=== PATIENT | male | born 1965 | race Caucasian/White ===

== ENCOUNTER 2020-10-16 01:53 | Emergency (ER) | payer BC ==
--- NOTE | 2020-10-16 02:05 | EDM.PDOC ---
ED HPI GENERAL MEDICAL PROBLEM - General Chief Complaint: Neurological Problem Stated Complaint: MEDICAL VIA [facility] Time Seen by Provider: 10/16/20 01:56 Source of Information: Reports: Patient, EMS History Limitations: Reports: No Limitations - History of Present Illness INITIAL COMMENTS - FREE TEXT/NARRATIVE: Oscar is a 55-year-old male presenting to the ED via [facility] for evaluation of syncopal episode with possible associated seizure. The patient was in his usual state of health and went tubing for most of the day today. He has had 8 beers and a couple cocktails throughout the day. Tonight he was sleeping when he got up and felt like he needed to urinate. He started did not feel well and ended up having a syncopal episode striking his face on the floor. He sustained a significant rug burn around the left periorbital space, nasal bridge, and zygomatic arch. Witnesses stated that he had left-sided tonic- clonic seizures lasting about 2 minutes. Patient does not have any evidence of biting his tongue, however, he thinks that he may have had incontinence of stool. The patient denies any history of seizures prior, however, he did fall several days ago and struck his head at that time as well. He denies any headache, vision changes, any new onset of numbness or tingling, or weakness. He denies any nausea or vomiting. He has had no urinary urgency, frequency, or burning with urination. He denies any fever or chills. Left Knee Pain Score (Numeric/FACES): 6 - Related Data Allergies Allergy/AdvReac Type Severity Reaction Status Date / Time No Known Allergies Allergy Verified 10/16/20 01:57 Home Meds: Home Meds Aspirin [Adult Low Dose Aspirin EC] 81 mg PO DAILY 10/16/20 [History] L.acidoph,Paracasei, B.lactis [Probiotic] 1 cap PO DAILY 10/16/20 [History] Losartan [Cozaar] 50 mg PO DAILY 10/16/20 [History] Multivitamin [Multi-Day Vitamins] 1 tab PO DAILY 10/16/20 [History] [place]-3/DHA/Epa/Fish Oil [Fish Oil 1,400 MG Softgel] 1 cap PO DAILY 10/16/20 [History] amLODIPine [Norvasc] 5 mg PO DAILY 10/16/20 [History] buPROPion HCL [Bupropion HCl Sr] 150 mg PO BID 10/16/20 [History] ED ROS GENERAL - Review of Systems Review Of Systems: See Below Constitutional: Reports: No Symptoms HEENT: Reports: No Symptoms Respiratory: Reports: No Symptoms Cardiovascular: Reports: Lightheadedness, Syncope Endocrine: Reports: No Symptoms GI/Abdominal: Reports: Stool Incontinence : Reports: No Symptoms Musculoskeletal: Reports: No Symptoms Skin: Reports: No Symptoms Neurological: Reports: Seizure (Possible tonic-clonic seizures for 2 minutes.), Syncope Psychiatric: Reports: No Symptoms Hematologic/Lymphatic: Reports: No Symptoms Immunologic: Reports: No Symptoms ED EXAM, GENERAL - Physical Exam Exam: See Below Exam Limited By: No Limitations General Appearance: Alert, No Apparent Distress Eye Exam: Bilateral Eye: EOMI, PERRL, Other (Irises are 2 different colors.) Nose: Normal Mucosa, No Blood, Other (Superficial abrasion on the nasal bridge) Throat/Mouth: Normal Inspection, Normal Lips, Normal Oropharynx, Normal Voice, No Airway Compromise, Other (No evidence of trauma to the cheeks or tongue) Head: Other (Abrasion above the left eyebrow and on the left zygomatic arch as well as the nasal bridge.) Neck: Normal Inspection, Supple, Non-Tender Respiratory/Chest: No Respiratory Distress, Lungs Clear, Normal Breath Sounds Cardiovascular: Normal Peripheral Pulses, Regular Rate, Rhythm, No Murmur Peripheral Pulses: 2+: Radial (L), Radial (R), Posterior Tibial (L), Posterior Tibial (R) GI/Abdominal: Normal Bowel Sounds, Soft, Non-Tender. No: Guarding, Rigid, Rebound Back Exam: Normal Inspection Extremities: Normal Inspection, Normal Range of Motion, No Pedal Edema, Normal Capillary Refill Neurological: Alert, Oriented, Normal Cognition, No Motor/Sensory Deficits Psychiatric: Normal Affect, Normal Mood Skin Exam: Warm, Dry, Intact, Normal Color, Wound/Incision (Abrasion on the left face over the left eyebrow, nasal bridge, and left zygomatic arch consistent with "rug burn".) Lymphatic: No Adenopathy #1 Interpretation EKG Date: 10/16/20 Time: 02:02 Rhythm: NSR Rate (Beats/Min): 75 [place]: LAD-Left [place] Deviation P-Wave: Present QRS: Normal (Left anterior fascicular block, poor R wave progression in the precordial leads.) Comparison: NA - No Prior EKG Course - Vital Signs Last Recorded V/S: Last Vital Signs Temp 36.4 C 10/16/20 01:58 Pulse 73 10/16/20 01:58 Resp 16 10/16/20 01:58 BP 112/67 10/16/20 01:58 Pulse Ox 93 L 10/16/20 01:58 - Orders/Labs/Meds Orders: Active Orders 24 hr Category Date Time Status EKG Documentation Completion [RC] ASDIRECTED Care 10/16/20 01:58 Active EKG 12 Lead [EK] Routine Ther 10/16/20 01:57 Ordered Labs: Laboratory Tests 10/16/20 10/16/20 10/16/20 Range/Units 02:16 02:16 02:16 WBC 10.7 (4.5-11.0) K/uL RBC 5.11 (4.30-5.90) M/uL Hgb 17.5 H (12.0-15.0) g/dL Hct 50.5 (40.0-54.0) % MCV 99 H (80-98) fL MCH 34 H (27-31) pg MCHC 35 (32-36) % Plt Count 206 (150-400) K/uL Neut % (Auto) 67.2 H (36-66) % Lymph % (Auto) 26.9 (24-44) % [place] % (Auto) 3.8 (2-6) % Eos % (Auto) 1.9 L (2-4) % Baso % (Auto) 0.2 (0-1) % Sodium 144 (140-148) mmol/L Potassium 3.9 (3.6-5.2) mmol/L Chloride 111 H (100-108) mmol/L Carbon Dioxide 19 L (21-32) mmol/L Anion Gap 17.9 H (5.0-14.0) mmol/L BUN 14 (7-18) mg/dL Creatinine 1.1 (0.8-1.3) mg/dL Est Cr Clr Drug Dosing 79.27 mL/min Estimated GFR (MDRD) > 60 (>60) Glucose 107 H (74-106) mg/dL Lactic Acid 2.7 H (0.4-2.0) mmol/L Calcium 7.6 L (8.5-10.1) mg/dL Total Bilirubin 0.3 (0.2-1.0) mg/dL AST 26 (15-37) U/L ALT 31 (12-78) U/L Alkaline Phosphatase 69 (46-116) U/L Creatine Kinase 343 H (39-308) U/L Total Protein 6.1 L (6.4-8.2) g/dL Albumin 3.2 L (3.4-5.0) g/dL Globulin 2.9 (2.3-3.5) g/dL Albumin/Globulin Ratio 1.1 L (1.2-2.2) Urine Color (YELLOW) Urine Appearance (CLEAR) Urine pH (5.0-8.0) Ur Specific Dres[place] (1.008-1.030) Urine Protein (NEGATIVE) mg/dL Urine Glucose (UA) (NEGATIVE) mg/dL Urine Ketones (NEGATIVE) mg/dL Urine Occult Blood (NEGATIVE) Urine Nitrite (NEGATIVE) Urine Bilirubin (NEGATIVE) Urine Urobilinogen (0.2-1.0) EU/dL Ur Leukocyte Esterase (NEGATIVE) Urine RBC (0-5) Urine WBC (0-5) Ur Epithelial Cells Amorphous Sediment Urine Bacteria Urine Mucus Ethyl Alcohol mg/dL 10/16/20 10/16/20 Range/Units 02:16 03:21 WBC (4.5-11.0) K/uL RBC (4.30-5.90) M/uL Hgb (12.0-15.0) g/dL Hct (40.0-54.0) % MCV (80-98) fL MCH (27-31) pg MCHC (32-36) % Plt Count (150-400) K/uL Neut % (Auto) (36-66) % Lymph % (Auto) (24-44) % [place] % (Auto) (2-6) % Eos % (Auto) (2-4) % Baso % (Auto) (0-1) % Sodium (140-148) mmol/L Potassium (3.6-5.2) mmol/L Chloride (100-108) mmol/L Carbon Dioxide (21-32) mmol/L Anion Gap (5.0-14.0) mmol/L BUN (7-18) mg/dL Creatinine (0.8-1.3) mg/dL Est Cr Clr Drug Dosing mL/min Estimated GFR (MDRD) (>60) Glucose (74-106) mg/dL Lactic Acid (0.4-2.0) mmol/L Calcium (8.5-10.1) mg/dL Total Bilirubin (0.2-1.0) mg/dL AST (15-37) U/L ALT (12-78) U/L Alkaline Phosphatase (46-116) U/L Creatine Kinase (39-308) U/L Total Protein (6.4-8.2) g/dL Albumin (3.4-5.0) g/dL Globulin (2.3-3.5) g/dL Albumin/Globulin Ratio (1.2-2.2) Urine Color Yellow (YELLOW) Urine Appearance Clear (CLEAR) Urine pH 5.0 (5.0-8.0) Ur Specific [place] 1.010 (1.008-1.030) Urine Protein Negative (NEGATIVE) mg/dL Urine Glucose (UA) Negative (NEGATIVE) mg/dL Urine Ketones Negative (NEGATIVE) mg/dL Urine Occult Blood Negative (NEGATIVE) Urine Nitrite Negative (NEGATIVE) Urine Bilirubin Negative (NEGATIVE) Urine Urobilinogen 0.2 (0.2-1.0) EU/dL Ur Leukocyte Esterase Negative (NEGATIVE) Urine RBC Not seen (0-5) Urine WBC Not seen (0-5) Ur Epithelial Cells Rare Amorphous Sediment Not seen Urine Bacteria Not seen Urine Mucus Rare Ethyl Alcohol 172 mg/dL Meds: Medications Discontinued Medications Generic Name Dose Route Start Last Admin Trade Name Freq PRN Reason Stop Dose Admin Calcium Gluconate 1 gm 10/16/20 02:52 10/16/20 03:03 Calcium Gluconate 10% 1 Gm/10 Ml Sdv IVPUSH 10/16/20 02:53 1 gm ONETIME ONE Administration - Radiology Interpretation Free Text/Narrative:: I reviewed the images of the CT head without contrast. There is no acute intracranial hemorrhage, mass, or midline shift. There is no acute cranial abnormalities. - Re-Assessments/Exams Free Text/Narrative Re-Assessment/Exam: 10/16/20 02:55 I reviewed the patient's labs with a CBC showing a [place] count of 10.7 with a normal differential, a hemoglobin of 17.5 with a hematocrit of 50.5 and a platelet count of 206,000. The patient's comprehensive metabolic panel is significant for a sodium of 144, potassium 3.9, chloride of 111, bicarbonate of 19, BUN of 14 with a creatinine of 1.1 and a GFR greater than 60. Patient's glucose is 107. Patient has significant lactic acidosis with a venous lactate of 2.7. The patient's creatinine kinase is elevated at 343. His liver enzymes are normal. His calcium is significantly low at 7.6 with a albumin of 3.2 and a corrected calcium 7.8. Patient's ethanol is 172. Because of the significant hypocalcemia, I ordered calcium gluconate 1 g IV push. Given his elevation of lactic acid and creatinine kinase, he likely did have a seizure but it was most likely secondary to significant fluid shifts due to his severe dehydration and intoxication. 10/16/20 03:29 urinalysis was unremarkable. Specific gravity is 1.010. At this time, I think the patient is suitable for discharge home. He should avoid any alcohol intake over the next 3 days and less he is starting to feel like he is going through delirium tremens. I would certainly limit the alcohol as much as possible as it could potentiate another seizure. If there is recurrence of seizure the patient should return immediately to the emergency room at which point we would likely arrange for him to be evaluated by neurology at either [facility] or [facility]. Patient needs to make sure he is drinking plenty of water to replete what he is lost in the high heat and humidity. We have essentially replaced his calcium back up to a normal level with 1 g of calcium gluconate IV. Departure - Departure Time of Disposition: 03:31 Disposition: Home, Self-Care 01 Clinical Impression: Syncope and collapse, Grand mal seizure, Hypocalcemia, Dehydration Facial abrasion Qualifiers: Encounter type: initial encounter Qualified Code(s): S00.81XA - Abrasion of other part of head, initial encounter Alcohol intoxication Qualifiers: Complication of substance-induced condition: uncomplicated Qualified Code(s): F10.920 - Alcohol use, unspecified with intoxication, uncomplicated - Discharge Information Instructions: Alcohol Intoxication, [id number], Hypocalcemia, Adult, Dehydration, Adult, [id number], Seizure, Adult, Qstz-[id number], Syncope, [id number] Forms: ED Department Discharge Care Plan Goals: I believe that you did have a seizure today likely secondary to severe dehydration, alcohol intoxication, a dangerously low calcium level, and a full bladder which led to a sudden collapse in your blood pressure. The drop in the blood pressure resulted in the brain not being able to function properly and could have possibly sparked a grand mall seizure. This does not mean that you are epileptic, but rather that a right degree of conditions occurred to allow the brain to react this way. Alcohol in combination with a low calcium and dehydration can certainly make it more likely that a seizure can occur. We are replacing the calcium in your bloodstream with the infusion of calcium gluconate. I would advocate avoiding any alcohol for the next 48 to 72 hours as recurrence of seizure is a worry. Make sure that you drink plenty of water over the next couple of days in addition to what we give you in the IV today. With the weather being this hot and humid, you lose about 100 250 ounces of water a day and that needs to be replaced each and every day. Sepsis Event Note (ED) - Focused Exam Vital Signs: Vital Signs Temp Pulse Resp BP Pulse Ox 10/16/20 01:58 36.4 C 73 16 112/67 93 L - Problem List & Annotations (1) Alcohol intoxication SNOMED Code(s): 19918441 Code(s): F10.929 - ALCOHOL USE, UNSPECIFIED WITH INTOXICATION, UNSPECIFIED Status: Acute Priority: Medium Current Visit: Yes Qualifiers: Complication of substance-induced condition: uncomplicated Qualified Code(s): F10.920 - Alcohol use, unspecified with intoxication, uncomplicated (2) Dehydration SNOMED Code(s): 61828901 Code(s): E86.0 - DEHYDRATION Status: Acute Priority: High Current Visit: Yes (3) Facial abrasion SNOMED Code(s): 938146868 Code(s): S00.81XA - ABRASION OF OTHER PART OF HEAD, INITIAL ENCOUNTER Status: Acute Priority: Low Current Visit: Yes Qualifiers: Encounter type: initial encounter Qualified Code(s): S00.81XA - Abrasion of other part of head, initial encounter (4) Grand mal seizure SNOMED Code(s): 45623343 Code(s): G40.409 - OTH GENERALIZED EPILEPSY, NOT INTRACTABLE, W/O STAT EPI Status: Acute Priority: High Current Visit: Yes (5) Hypocalcemia SNOMED Code(s): 0804344 Code(s): E83.51 - HYPOCALCEMIA Status: Acute Priority: High Current Visit: Yes (6) Syncope and collapse SNOMED Code(s): 238136451 Code(s): R55 - SYNCOPE AND COLLAPSE Status: Acute Priority: High Current Visit: Yes - Problem List Review Problem List Initiated/Reviewed/Updated: Yes - My Orders Last 24 Hours: My Active Orders 10/16/20 01:57 EKG 12 Lead [EK] Routine 10/16/20 01:58 EKG Documentation Completion [RC] ASDIRECTED - Assessment/Plan Last 24 Hours: My Active Orders 10/16/20 01:57 EKG 12 Lead [EK] Routine 10/16/20 01:58 EKG Documentation Completion [RC] ASDIRECTED
[2020-10-16] MEDS ORDERED: Calcium Gluconate 10% 1 GM/10 ML SDV IVPUSH ONE (02:52)
--- NOTE | 2020-10-16 02:57 | CRLCT ---
For Patients: As a result of the Century Cures Act, medical imaging exams and procedure reports are released immediately into your electronic medical record. You may view this report before your referring provider. If you have questions, please contact your health care provider. INDICATION: Syncope closed head injury TECHNIQUE: CT Head without i.v. contrast. Coronal and sagittal reformats were obtained. COMPARISON: None FINDINGS: CSF space: The ventricles are normal for age. Brain: No evidence of mass, acute infarction or hemorrhage is seen. No mass-effect or midline shift is seen. The brain parenchyma is otherwise normal in appearance with preservation of the noel-white matter junction. Calvarium: The visualized paranasal sinuses are well aerated. The mastoid air cells are clear. The visualized orbits are grossly unremarkable. The calvarium is unremarkable in appearance with no fractures identified. IMPRESSION: 1. No evidence of acute infarction, intracranial hemorrhage, or mass-effect seen. Please note that all CT scans at this facility use dose modulation, iterative reconstruction, and/or weight-based dosing when appropriate to reduce radiation dose to as low as reasonably achievable. Dictated by: Raad Hess MD @ 10/16/2020 02:56:11 (Electronically Signed)
== END 2020-10-16 03:47 | disposition home or self-care (01) ==
LOC: JP.ED 01:53
DX: R55 Syncope and collapse (principal); S00.81XA Abrasion of other part of head, initial encounter; S00.31XA Abrasion of nose, initial encounter; E86.0 Dehydration; F10.120 Alcohol abuse with intoxication, uncomplicated; E83.51 Hypocalcemia; G40.409 Other generalized epilepsy and epileptic syndromes, not intractable, without status epilepticus; I44.4 Left anterior fascicular block; Y90.6 Blood alcohol level of 120-199 mg/100 ml; W22.8XXA Striking against or struck by other objects, initial encounter
CPT/HCPCS: 36415; 70450; 80053; 80307; 81001; 82550; 83605; 85025; 93005; 96374; 99285; J0610